=== PATIENT | male | born 1980 | race Caucasian/White ===

== ENCOUNTER 2018-12-26 22:21 | Emergency (ER) | payer MEDICAID ==
[~2018-12-26] VITALS: Ht 162.6 cm; Wt 70.4 kg
[2018-12-27 01:36] VITALS: BP 140/80
== END 2018-12-27 01:36 | disposition home or self-care (01) ==
LOC: EMS 22:24
DX: S00.01XA Abrasion of scalp, initial encounter (principal); F17.290 Nicotine dependence, other tobacco product, uncomplicated; Z85.028 Personal history of other malignant neoplasm of stomach; V43.52XA Car driver injured in collision with other type car in traffic accident, initial encounter; Y93.89 Activity, other specified; Y92.411 Interstate highway as the place of occurrence of the external cause; Y99.8 Other external cause status
CPT/HCPCS: 99406